=== PATIENT | female | born 1975 | race Caucasian/White ===

== ENCOUNTER 2016-10-18 09:10 | Inpatient (IN) | payer BC ==
[2016-10-18] MEDS ORDERED: RX INFO: IV CONTRAST WAS GIVEN 1 EACH MISC MISCELLANE PRN (09:22)
[2016-10-18] MEDS ORDERED: SODIUM CHLORIDE 0.9% 1,000 ML IV STA (09:22)
--- NOTE | 2016-10-18 09:26 | ED ---
Abdominal Pain HPI <MisbahEmmanuel - Last Filed: 10/18/16 10:56> - General Source: patient, RN notes reviewed Mode of arrival: ambulatory Limitations: no limitations <Fredo Scales - Last Filed: 10/18/16 11:12> - General Chief Complaint: Abdominal Pain Stated Complaint: RT SIDE PAIN Time Seen by Provider: 10/18/16 09:18 - History of Present Illness Initial Comments: 41-year-old female presents emergency Department chief complaint of right-sided abdominal pain. Patient states pain started on Sunday and progressively has gotten worse. Patient states it started in her mid abdomen but now is in her right lower quadrant has not moved from there. She states the bumps erodes any movement makes it feel much worse. She states nothing significant pain feel better other than she took multiple ibuprofen yesterday in which he took the edge off. Patient denies any nausea vomiting diarrhea constipation. Denies dysuria hematuria. Patient denies fever, chills, chest pain or shortness of breath. Patient had no prior abdominal surgeries. (Fredo Scales) - Related Data Home Medications Medication Instructions Recorded Confirmed No Known Home Medications [No 10/18/16 10/18/16 Known Home Medications] Allergies Allergy/AdvReac Type Severity Reaction Status Date / Time Sulfa (Sulfonamide Allergy Rash/Hives Verified 10/18/16 09:27 Antibiotics) Review of Systems ROS Other: All systems not noted in ROS Statement are negative. <MisbahEmmanuel - Last Filed: 10/18/16 10:56> ROS Other: All systems not noted in ROS Statement are negative. <Fredo Scales - Last Filed: 10/18/16 11:12> ROS Statement: Those systems with pertinent positive or pertinent negative responses have been documented in the HPI. Past Medical History Additional Past Medical History / Comment(s): kidney stones History of Any Multi-Drug Resistant Organisms: None Reported Past Surgical History: No Surgical Hx Reported Past Psychological History: No Psychological Hx Reported Smoking Status: Never smoker Past Alcohol Use History: None Reported Past Drug Use History: None Reported <Fredo Scales - Last Filed: 10/18/16 11:12> General Exam Limitations: no limitations General appearance: alert, in no apparent distress Respiratory exam: Present: normal lung sounds bilaterally. Absent: respiratory distress, wheezes, rales, rhonchi, stridor Cardiovascular Exam: Present: normal rhythm, tachycardia, normal heart sounds. Absent: systolic murmur, diastolic murmur, rubs, gallop, clicks GI/Abdominal exam: Present: soft, tenderness (Moderate right lower quadrant tenderness), guarding, normal bowel sounds. Absent: distended, rebound, rigid Back exam: Absent: CVA tenderness (R), CVA tenderness (L) Neurological exam: Present: alert Skin exam: Present: warm, dry, intact, normal color. Absent: rash <Fredo Scales - Last Filed: 10/18/16 11:12> Medical Decision Making - Lab Data Result diagrams: 10/18/16 09:44 10/18/16 09:44 <Emmanuel Crawley - Last Filed: 10/18/16 10:56> - Lab Data Result diagrams: 10/18/16 09:44 10/18/16 09:44 <Fredo Scales - Last Filed: 10/18/16 11:12> - Medical Decision Making CT reviewed. Patient reevaluated by myself, Dr. Crawley. Patient and family updated on results and plan. Case was discussed in detail with Dr. Wright, who will admit for hospital call. IV antibiotics will be started. Patient does meet sepsis criteria with probable appendicitis diagnosed at 10:57 AM. ( Emmanuel Crawley) - Lab Data Lab Results 10/18/16 10/18/16 10/18/16 Range/Units 09:20 09:20 09:44 WBC (3.8-10.6) k/uL RBC (3.80-5.40) m/uL Hgb (11.4-16.0) gm/dL Hct (34.0-46.0) % MCV (80.0-100.0) fL MCH (25.0-35.0) pg MCHC (31.0-37.0) g/dL RDW (11.5-15.5) % Plt Count (150-450) k/uL Neutrophils % % Lymphocytes % % Monocytes % % Eosinophils % % Basophils % % Neutrophils # (1.3-7.7) k/uL Lymphocytes # (1.0-4.8) k/uL Monocytes # (0-1.0) k/uL Eosinophils # (0-0.7) k/uL Basophils # (0-0.2) k/uL Sodium 141 (137-145) mmol/L Potassium 4.1 (3.5-5.1) mmol/L Chloride 106 (98-107) mmol/L Carbon Dioxide 24 (22-30) mmol/L Anion Gap 11 mmol/L BUN 9 (7-17) mg/dL Creatinine 0.93 (0.52-1.04) mg/dL Est GFR (MDRD) Af Amer >60 (>60 ml/min/1.73 sqM) Est GFR (MDRD) Non-Af >60 (>60 ml/min/1.73 sqM) Glucose 117 H (74-99) mg/dL Calcium 9.0 (8.4-10.2) mg/dL Total Bilirubin 1.3 (0.2-1.3) mg/dL AST 21 (14-36) U/L ALT 31 (9-52) U/L Alkaline Phosphatase 85 (38-126) U/L Total Protein 7.7 (6.3-8.2) g/dL Albumin 4.3 (3.5-5.0) g/dL Amylase 54 (30-110) U/L Lipase 64 (23-300) U/L Urine Color Yellow Urine Appearance Cloudy H (Clear) Urine pH 5.5 (5.0-8.0) Ur Specific [place] 1.022 (1.001-1.035) Urine Protein 1+ H (Negative) Urine Glucose (UA) Negative (Negative) Urine Ketones 2+ H (Negative) Urine Blood Moderate H (Negative) Urine Nitrite Negative (Negative) Urine Bilirubin Negative (Negative) Urine Urobilinogen 2.0 (<2.0) mg/dL Ur Leukocyte Esterase Large H (Negative) Urine RBC 12 H (0-5) /hpf Urine WBC 10 H (0-5) /hpf Ur Squamous Epith Cells 12 H (0-4) /hpf Urine Bacteria Rare H (None) /hpf Urine Mucus Rare H (None) /hpf Urine HCG, Qual Not Detected (Not Detectd) 10/18/16 Range/Units 09:44 WBC 17.5 H (3.8-10.6) k/uL RBC 4.71 (3.80-5.40) m/uL Hgb 13.4 (11.4-16.0) gm/dL Hct 40.8 (34.0-46.0) % MCV 86.5 (80.0-100.0) fL MCH 28.3 (25.0-35.0) pg MCHC 32.7 (31.0-37.0) g/dL RDW 12.9 (11.5-15.5) % Plt Count 209 (150-450) k/uL Neutrophils % 85 % Lymphocytes % 8 % Monocytes % 5 % Eosinophils % 0 % Basophils % 0 % Neutrophils # 14.9 H (1.3-7.7) k/uL Lymphocytes # 1.3 (1.0-4.8) k/uL Monocytes # 0.9 (0-1.0) k/uL Eosinophils # 0.1 (0-0.7) k/uL Basophils # 0.0 (0-0.2) k/uL Sodium (137-145) mmol/L Potassium (3.5-5.1) mmol/L Chloride (98-107) mmol/L Carbon Dioxide (22-30) mmol/L Anion Gap mmol/L BUN (7-17) mg/dL Creatinine (0.52-1.04) mg/dL Est GFR (MDRD) Af Amer (>60 ml/min/1.73 sqM) Est GFR (MDRD) Non-Af (>60 ml/min/1.73 sqM) Glucose (74-99) mg/dL Calcium (8.4-10.2) mg/dL Total Bilirubin (0.2-1.3) mg/dL AST (14-36) U/L ALT (9-52) U/L Alkaline Phosphatase (38-126) U/L Total Protein (6.3-8.2) g/dL Albumin (3.5-5.0) g/dL Amylase (30-110) U/L Lipase (23-300) U/L Urine Color Urine Appearance (Clear) Urine pH (5.0-8.0) Ur Specific [place] (1.001-1.035) Urine Protein (Negative) Urine Glucose (UA) (Negative) Urine Ketones (Negative) Urine Blood (Negative) Urine Nitrite (Negative) Urine Bilirubin (Negative) Urine Urobilinogen (<2.0) mg/dL Ur Leukocyte Esterase (Negative) Urine RBC (0-5) /hpf Urine WBC (0-5) /hpf Ur Squamous Epith Cells (0-4) /hpf Urine Bacteria (None) /hpf Urine Mucus (None) /hpf Urine HCG, Qual (Not Detectd) Disposition <Emmanuel Crawley - Last Filed: 10/18/16 10:56> Time of Disposition: 11:12 <Fredo Scales - Last Filed: 10/18/16 11:12> Clinical Impression: Acute appendicitis Disposition: ADMITTED IP TO THIS HOSP Condition: Fair
[2016-10-18 10:05] LABS: Basophils % (A) 0 %; CH 28.7; CHCM 33.3; Eosinophils # (A) 0.1 k/uL (0-0.7); Eosinophils % (A) 0 %; HCT 40.8 % (34.0-46.0); HDW 2.42; HGB 13.4 gm/dL (11.4-16.0); Luc # (Auto) 0.25; Luc % (Auto) 1; Lymphocytes # (A) 1.3 k/uL (1.0-4.8); Lymphocytes % (A) 8 %; MCH 28.3 pg (25.0-35.0); MCHC 32.7 g/dL (31.0-37.0); MCV 86.5 fL (80.0-100.0); Mean Platelet Volume 7.8; Monocytes # (A) 0.9 k/uL (0-1.0); Monocytes % (A) 5 %; Neutrophils # (A) 14.9 k/uL (1.3-7.7); Neutrophils % (A) 85 %; RBC 4.71 m/uL (3.80-5.40); RDW 12.9 % (11.5-15.5); WBC 17.5 k/uL (3.8-10.6)
[2016-10-18 10:10] LABS: Appearance,Urine Cloudy (Clear); Bacteria,Urine Rare /hpf; Bilirubin,Urine Negative (Negative); Glucose,Urine (UA) Negative (Negative); Ketones,Urine 2+ (Negative); Leukocyte Esterase,Urine Large (Negative); Mucus,Urine Rare /hpf; Nitrite,Urine Negative (Negative); PH, Urine 5.5 (5.0-8.0); Particle Count 11651; Protein,Urine 1+ (Negative); RBC,Urine 12 /hpf (0-5); Specific Gravity,Urine 1.022 (1.001-1.035); Squamous Epithelial Cell,Urine 12 /hpf (0-4); UA Billing (MACRO vs. MICRO) MICRO; WBC,Urine 10 /hpf (0-5)
[2016-10-18 10:25] LABS: ALT 31 U/L (9-52); AST 21 U/L (14-36); Alkaline Phosphatase 85 U/L (38-126); Amylase 54 U/L (30-110); Anion Gap 11 mmol/L; Blood Urea Nitrogen 9 mg/dL (7-17); Carbon Dioxide 24 mmol/L (22-30); Chloride 106 mmol/L (98-107); Glucose 117 mg/dL (74-99); Non-African American GFR(MDRD) >60 (>60 ml/min/1.73 sqM); Potassium 4.1 mmol/L (3.5-5.1); Sodium 141 mmol/L (137-145); Total Bilirubin 1.3 mg/dL (0.2-1.3); Total Protein 7.7 g/dL (6.3-8.2)
[2016-10-18] MEDS ORDERED: PIPERACILLIN-TAZOBACTAM 3.375 GM in DEXTROSE/WATER 1 50ML.BAG IVPB STA ×2 (10:46→10:56)
[2016-10-18] MEDS ORDERED: MORPHINE SULFATE 4 MG/ML SYRINGE IVP STA (10:47)
[2016-10-18] MEDS ORDERED: ONDANSETRON 4 MG/2 ML VIAL IVP STA (10:47)
--- NOTE | 2016-10-18 10:47 | CT ---
EXAMINATION TYPE: CT abdomen pelvis w con DATE OF EXAM: 10/18/2016 10:35 AM HISTORY: RLQ pain X 3 days, history of stones. CT DLP: 1393.0mGycm Automated Exposure Control for Dose Reduction was Utilized. CONTRAST: CT scan of the abdomen and pelvis is performed with IV Contrast, patient injected with 100 mL of Omni paque 300. COMPARISON: None. FINDINGS: LUNG BASES: No significant abnormality is appreciated. LIVER/GB: No significant abnormality is appreciated. PANCREAS: No significant abnormality is seen. SPLEEN: No significant abnormality is seen. ADRENALS: No significant abnormality is seen. KIDNEYS: There is single 2 mm calculus lower pole level left kidney on coronal image 50. There are 2 2 mm calculi lower pole level right kidney on axial image 36. There is symmetric cortical medullary u ptake and excretion from both kidneys without evidence of hydronephrosis bilaterally. There is promin ent left-sided pelvic phlebolith on axial image 67. No intraluminal calculus in a poorly distended bl adder is seen. BOWEL: Evaluation bowel is slightly suboptimal secondary to lack of enteric contrast. There is no valeria picious small or large bowel dilatation. There is hyperdense focus at base of cecum on coronal image 27 could reflect appendicolith. Normal-appearing appendix is not distinctly identified. There is mode rate ill-defined fluid and inflammatory change centered at base of cecum. Terminal ileum is seen on c oronal image 28 with mild wall thickening identified. There are few scattered prominent but subcentim eter lymph nodes. Suspect appendicitis with perforation. No well-formed fluid collection or drainable abscess is seen. No pneumoperitoneum is noted. Normal or dilated appearing appendix are not identifi ed. UTERUS/ADNEXA: Uterus is anteverted in shape. Both ovaries are seen and normal in size near axial imer ge 64. LYMPH NODES: No greater than 1cm abdominal or pelvic lymph nodes are appreciated. OSSEOUS STRUCTURES: No significant abnormality is seen. OTHER: No significant additional abnormality is seen. IMPRESSION: CT findings are consistent with acute appendicitis, nonvisualization of normal or abnorma l appendix raises concern for perforation. No free air or well-formed fluid collection/abscess is quan ntified.
[2016-10-18] MEDS ORDERED: NALOXONE 0.4 MG/ML 1 ML VIAL IV PRN (11:13)
[2016-10-18] MEDS ORDERED: SODIUM CHLORIDE 0.9% 1,000 ML IV SCH (11:15)
[2016-10-18] MEDS ORDERED: HEPARIN SODIUM,PORCINE 5,000 UNIT/ML 1 ML VIAL SQ ONE (11:32)
--- NOTE | 2016-10-18 11:32 | P.GSHP ---
History of Present Illness H&P Date: 10/18/16 Chief Complaint: Abdominal pain 41 years old female presented with periumbilical pain that started 2 days ago and has now progressed to right lower quadrant. Pain is severe and she is not able to lie down flat. No fever, chills or redness. Loss of appetite. No nausea or vomiting. No prior surgeries. Computed tomography scan of the abdomen and pelvis reviewed. Information and phlegmon identified in the right lower quadrant in the vicinity of cecum and appendix. This most likely represents perforated appendicitis - Review of Systems Comment: Constitutional: Denies fever, weight loss or loss of appetite HEENT: No difficulty in vision or hearing. Denies dysphagia. Cardiovascular: Denies chest pain, palpitations, dizziness, shortness of breath. Gastrointestinal: No recent change in bowel habits, no abdominal pain, no nausea or vomiting. Genitourinary: No urinary incontinence, hematuria or dysuria Neurologic: No seizures, denies weakness in upper or lower extremities Past Medical History Additional Past Medical History / Comment(s): kidney stones History of Any Multi-Drug Resistant Organisms: None Reported Past Surgical History: No Surgical Hx Reported Past Psychological History: No Psychological Hx Reported Smoking Status: Never smoker Past Alcohol Use History: None Reported Past Drug Use History: None Reported Medications and Allergies Home Medications Medication Instructions Recorded Confirmed Type No Known Home Medications [No 10/18/16 10/18/16 History Known Home Medications] Allergies Allergy/AdvReac Type Severity Reaction Status Date / Time Sulfa (Sulfonamide Allergy Rash/Hives Verified 10/18/16 09:27 Antibiotics) Surgical - Exam Vital Signs Temp Pulse Resp BP Pulse Ox 97.8 F 124 H 18 128/71 99 10/18/16 09:15 10/18/16 09:15 10/18/16 09:15 10/18/16 09:15 10/18/16 09:15 General: Patient is alert and oriented to time, place and person and cooperative with exam. HEENT: No pallor, no icterus, no thyroid enlargement, no cervical lymphadenopathy. Chest: Bilateral equal breath sounds present. No wheezes, no crackles. Cardiovascular: Regular rate and rhythm. Abdomen: Right lower quadrant tenderness with localized peritonitis. Rovsing sign positive Integumentary: . No active ulcers or discharge. Neurologic: Cranial nerves II-XII intact. Strength upper and lower extremities 5/5. No focal neurologic deficits. Gait is normal. Psychiatric: No anxiety or psychosis. No suicidal thoughts. Results - Labs 10/18/16 09:44 10/18/16 09:44 Abnormal Lab Results - Last 24 Hours (Table) 10/18/16 10/18/16 10/18/16 Range/Units 09:20 09:44 09:44 WBC 17.5 H (3.8-10.6) k/uL Neutrophils # 14.9 H (1.3-7.7) k/uL Glucose 117 H (74-99) mg/dL Urine Appearance Cloudy H (Clear) Urine Protein 1+ H (Negative) Urine Ketones 2+ H (Negative) Urine Blood Moderate H (Negative) Ur Leukocyte Esterase Large H (Negative) Urine RBC 12 H (0-5) /hpf Urine WBC 10 H (0-5) /hpf Ur Squamous Epith Cells 12 H (0-4) /hpf Urine Bacteria Rare H (None) /hpf Urine Mucus Rare H (None) /hpf Diabetes panel 10/18/16 Range/Units 09:44 Sodium 141 (137-145) mmol/L Potassium 4.1 (3.5-5.1) mmol/L Chloride 106 (98-107) mmol/L Carbon Dioxide 24 (22-30) mmol/L BUN 9 (7-17) mg/dL Creatinine 0.93 (0.52-1.04) mg/dL Glucose 117 H (74-99) mg/dL Calcium 9.0 (8.4-10.2) mg/dL AST 21 (14-36) U/L ALT 31 (9-52) U/L Alkaline Phosphatase 85 (38-126) U/L Total Protein 7.7 (6.3-8.2) g/dL Albumin 4.3 (3.5-5.0) g/dL Calcium panel 10/18/16 Range/Units 09:44 Calcium 9.0 (8.4-10.2) mg/dL Albumin 4.3 (3.5-5.0) g/dL Pituitary panel 10/18/16 Range/Units 09:44 Sodium 141 (137-145) mmol/L Potassium 4.1 (3.5-5.1) mmol/L Chloride 106 (98-107) mmol/L Carbon Dioxide 24 (22-30) mmol/L BUN 9 (7-17) mg/dL Creatinine 0.93 (0.52-1.04) mg/dL Glucose 117 H (74-99) mg/dL Calcium 9.0 (8.4-10.2) mg/dL Adrenal panel 10/18/16 Range/Units 09:44 Sodium 141 (137-145) mmol/L Potassium 4.1 (3.5-5.1) mmol/L Chloride 106 (98-107) mmol/L Carbon Dioxide 24 (22-30) mmol/L BUN 9 (7-17) mg/dL Creatinine 0.93 (0.52-1.04) mg/dL Glucose 117 H (74-99) mg/dL Calcium 9.0 (8.4-10.2) mg/dL Total Bilirubin 1.3 (0.2-1.3) mg/dL AST 21 (14-36) U/L ALT 31 (9-52) U/L Alkaline Phosphatase 85 (38-126) U/L Total Protein 7.7 (6.3-8.2) g/dL Albumin 4.3 (3.5-5.0) g/dL Assessment and Plan (1) Morbid obesity Status: Acute (2) Morbid obesity due to excess calories Status: Acute (3) Acute appendicitis Status: Acute Plan: 1. Acute appendicitis with localized peritonitis 2. IV hydration. Thousand mL of normal saline IV bolus stat 3. IV antibiotics 4. Heparin 5000 units of diffuse injection times one 5. Bilateral SCDs 6. Findings discussed with the patient. Plan for laparoscopic appendectomy possible open. The risks, benefits and potential complications including bleeding, infection, possibility of converting into open, partial cecum resection and possible ostomy were discussed with the patient. She agreed and elected to undergo the procedure
[2016-10-18] MEDS ORDERED: IV FLUID CONTINUATION 1,000 ML IV ONE (12:39)
[2016-10-18] MEDS ORDERED: MIDAZOLAM 2 MG/2 ML VIAL IV ONE (13:05)
[2016-10-18] MEDS ORDERED: HYDROmorphone (PF) 1 MG/ML ONE (14:02)
[2016-10-18] MEDS ORDERED: MIDAZOLAM 2 MG/2 ML VIAL ONE (14:02)
[2016-10-18] MEDS ORDERED: PROPOFOL 10 MG/ML 20 ML VIAL IV ONE (14:02)
[2016-10-18] MEDS ORDERED: ROCURONIUM BROMIDE 10 MG/ML 10 ML VIAL IV ONE (14:02)
[2016-10-18] MEDS ORDERED: fentaNYL (PF) 50 MCG/ML 2 ML AMP ONE (14:02)
[2016-10-18] MEDS ORDERED: GLYCOPYRROLATE 0.2 MG/ML 2 ML VIAL ONE (14:02)
[2016-10-18] MEDS ORDERED: LIDOCAINE 1% INJ 10MG/ML (20 ML MDV) ONE (14:02)
[2016-10-18] MEDS ORDERED: NEOSTIGMINE 1 MG/ML 10 ML VIAL ONE (14:02)
[2016-10-18] MEDS ORDERED: SUCCINYLCHOLINE CHLORIDE 100 MG/5 ML SYR IV ONE (14:02)
[2016-10-18] MEDS ORDERED: BUPIVACAIN-EPI 0.25%-1:200,000 30 ML VIAL SQ ONE ×2 (14:45)
[2016-10-18] MEDS ORDERED: LACTATED RINGERS 1,000 ML IV ONE ×2 (14:46→15:20)
[2016-10-18] MEDS ORDERED: BENZOCAINE/MENTHOL LOZENG 1 EACH LOZENGE MUCOUS MEM PRN (16:49)
[2016-10-18] MEDS ORDERED: METOCLOPRAMIDE 5 MG/ML 2 ML VIAL IVP PRN (16:49)
--- NOTE | 2016-10-18 16:55 | P.OP ---
Date of Procedure: 10/18/16 Preoperative Diagnosis: Acute appendicitis with peritonitis Obesity BMI 36.2 Postoperative Diagnosis: Acute perforated appendicitis and adjacent cecal perforation Procedure(s) Performed: Attempted laparoscopic appendectomy coverted to open Open ileocecal resection with primary side to side functional end anastomosis Implants: NA Anesthesia: GETA, local Surgeon: Sigrid Wright Pathology: other Condition: stable Disposition: PACU Indications for Procedure: 41 years old female presents with right lower quadrant pain of 2 day duration. She had peritonitis on clinical exam. Leukocytosis 17K at presentation and computed tomography scan suggestive of perforated appendicitis. Informed consent obtained and patient elected to undergo laparoscopic appendectomy possible open and possible partial colon resection. Operative Findings: Perforated appendicitis with abscess and adjacent cecal perforation Description of Procedure: The patient was brought to the operating room and placed in supine position with both arms out. General anesthesia with endotracheal intubation was performed as per anesthesia team. A Kat catheter was inserted under sterile aseptic precautions. Bilateral SCDs were placed and patient was secured to the operating table using a footboard and two secure straps. Chlorhexidine was used to prep the abdomen followed by application of sterile drapes . A timeout was performed to verify correct patient and procedure. Patient was confirmed to receive perioperative IV antibiotics and subcutaneous VTE prophylaxis. A 5 mm skin incision was made along the left anterior axillary line and Veress needle was inserted. Pneumoperitoneum was established to a pressure of 15 mmHg without any difficulty. A 5 mm 30 laparoscope was loaded with 5 mm Optiview trocar and the peritoneal cavity was entered under direct vision using the Optiview technique. Additional 5 mm trocar was placed in suprapubic area and a 10 mm trocar was placed above the umbilicus. An additional 5 mm trocar was placed in left lower quadrant. Patient was placed in reverse Trendelenburg with right side up. The appendix was not identified. There was a phlegmonous mass in the right lower quadrant with wrapped omentum, and distal small bowel and cecum. Dissection was carried around using suction irrigation device the peel of the omentum. The tip of the appendix was identified wrapped behind the cecum. This was continuously mobilized. However it was densely adhered to the cecum. There was some opening noted in this area of the cecum and hence concern for perforation of the colon secondary to intense inflammation from perforated appendicitis. Peritoneal cultures taken. The white line of Toldt was dissected using laparoscopic LigaSure device. Blunt sweeping movements were carried out using fenestrated graspers to reflect the cecum and ascending colon medially. The peritoneal attachments from terminal ileum and cecum to the lateral abdominal wall were taken down using LigaSure. Dissection was carried out close to the cecum and away from the right ureter. The entire right colon was mobilized upto the hepatic flexure. Loose fibrofatty tissue including small blood vessels were taken down using LigaSure device. The cecum was free enough to reach the midline. The appendix was grasped with a laparoscopic Meaghan instrument. An 8 cm skin incision was made in the midline incorporating the trocar site. This was deepened through skin and subcutaneous tissue till the fascia was identified and peritoneal cavity was safely entered. An Luis wound protector device was inserted. The appendix along with the cecum was exteriorized. A window was made in mesentery of the small bowel approximately 3 cm from ileocecal valve. The small bowel was divided using Covidien 60 montano staple load. The ileocolic pedicle divided between two Shantelle clamps and doubly suture ligated. The colon was divided close to the perforation in the cecum after creating a window in the mesocolon. Covidien 60 purple staple loadx2 was fired to transect the large bowel. The mesentery was divided between 2 Shantelle clamps . The right colon was sent off as a specimen. Attention was then focused to create a [id number] functional end anastomosis between small bowel and ascending colon. Covidien 60 purple staple load -2 were fired to create a [id number] anastomosis. The final enterotomy was closed using 60 purple staple load x2. There was no twist or torsion of the large or small bowel. A Peter drain was left in right lower quadrant. The anastomosis was interiorized and fascia closed with continuous running sutures of #1 PDS. A ana drain was left in the subcutaneous tissue. The shawn were applied to approximate the skin. The sponge, instrument, needle count were correct x2 Patient tolerated the procedure well and was taken to post anesthetic care unit in stable condition.
[2016-10-18] MEDS ORDERED: KETOROLAC 30 MG/ML 1 ML VIAL IVP ONE (16:58)
[2016-10-18] MEDS ORDERED: PIPERACILLIN-TAZOBACTAM 3.375 GM in DEXTROSE/WATER 1 50ML.BAG IVPB SCH (17:45)
[2016-10-18] MEDS: ACETAMINOPHEN IV (For NPO) 1,000 MG in EMPTY BAG 1 BAG IVPB SCH ×2 (18:02→23:44)
[2016-10-18] MEDS: PIPERACILLIN-TAZOBACTAM 3.375 GM in DEXTROSE/WATER 1 50ML.BAG IVPB SCH (18:18)
[2016-10-18] MEDS: ALVIMOPAN 12 MG CAPSULE PO SCH (21:49)
[2016-10-18] MEDS: ONDANSETRON 4 MG/2 ML VIAL IVP PRN (21:51)
[2016-10-18] MEDS: HYDROmorphone 1 MG/ML 1 ML SYRINGE IVP PRN (21:51)
[2016-10-18] MEDS: HEPARIN SODIUM,PORCINE 5,000 UNIT/ML 1 ML VIAL SQ SCH ×2 (22:53→23:45)
[2016-10-18] MEDS: LACTATED RINGERS 1,000 ML IV SCH ×2 (23:14→23:58)
[2016-10-19] MEDS: PIPERACILLIN-TAZOBACTAM 3.375 GM in DEXTROSE/WATER 1 50ML.BAG IVPB SCH ×3 (00:31→16:25)
[2016-10-19] MEDS: HYDROmorphone 1 MG/ML 1 ML SYRINGE IVP PRN ×5 (01:35→21:06)
[2016-10-19] MEDS: diphenhydrAMINE 50 MG/ML 1 ML VIAL IVP PRN ×2 (05:16→12:54)
[2016-10-19] MEDS: LACTATED RINGERS 1,000 ML IV SCH ×3 (05:18→22:43)
[2016-10-19] MEDS: ACETAMINOPHEN IV (For NPO) 1,000 MG in EMPTY BAG 1 BAG IVPB SCH ×2 (05:20→12:17)
[2016-10-19 07:15] LABS: Basophils % (A) 0 %; CH 28.4; CHCM 32.2; Eosinophils # (A) 0.1 k/uL (0-0.7); Eosinophils % (A) 1 %; HCT 33.8 % (34.0-46.0); HDW 2.43; HGB 11.4 gm/dL (11.4-16.0); Luc # (Auto) 0.19; Luc % (Auto) 2; Lymphocytes # (A) 0.9 k/uL (1.0-4.8); Lymphocytes % (A) 7 %; MCH 29.9 pg (25.0-35.0); MCHC 33.8 g/dL (31.0-37.0); MCV 88.7 fL (80.0-100.0); Mean Platelet Volume 8.3; Monocytes # (A) 0.4 k/uL (0-1.0); Monocytes % (A) 4 %; Neutrophils # (A) 10.3 k/uL (1.3-7.7); Neutrophils % (A) 87 %; RBC 3.82 m/uL (3.80-5.40); RDW 12.8 % (11.5-15.5); WBC 11.8 k/uL (3.8-10.6); WBC (Perox) 12.75
[2016-10-19 07:28] LABS: Anion Gap 7 mmol/L; Blood Urea Nitrogen 11 mg/dL (7-17); Calcium 8.1 mg/dL (8.4-10.2); Carbon Dioxide 25 mmol/L (22-30); Chloride 107 mmol/L (98-107); Glucose 120 mg/dL (74-99); Non-African American GFR(MDRD) >60 (>60 ml/min/1.73 sqM); Potassium 4.4 mmol/L (3.5-5.1); Sodium 139 mmol/L (137-145)
[2016-10-19] MEDS: ALVIMOPAN 12 MG CAPSULE PO SCH ×2 (09:00→22:05)
[2016-10-19] MEDS: HEPARIN SODIUM,PORCINE 5,000 UNIT/ML 1 ML VIAL SQ SCH ×2 (09:00→16:25)
[2016-10-19 09:24] LABS: Appearance,Urine Turbid (Clear); Bilirubin,Urine 1+ (Negative); Glucose,Urine (UA) Negative (Negative); Ketones,Urine 1+ (Negative); Leukocyte Esterase,Urine Negative (Negative); Nitrite,Urine Negative (Negative); PH, Urine 5.5 (5.0-8.0); Particle Count 13322; Protein,Urine Trace (Negative); RBC,Urine 9 /hpf (0-5); Specific Gravity,Urine 1.035 (1.001-1.035); UA Billing (MACRO vs. MICRO) MICRO
--- NOTE | 2016-10-19 12:14 | P.PN ---
<Luana Medleytory Mary - Last Filed: 10/19/16 13:44> Subjective 41-year-old female being seen this morning currently resting in bed. Patient is postop October 18 Attempted laparoscopic appendectomy coverted to open Open ileocecal resection with primary side to side functional end anastomosis . Currently is resting in bed and states pain medication has been effective for pain control currently is afebrile temp is 96.9. The white count is down to 11.8 on admission was 17.5 Patient's initial presentation to the emergency room with a chief complaint of developing right lower quadrant pain onset 2 days prior. Patient had leukocytosis and a CAT scan of the abdomen and pelvis suggest perforated appendicitis. Patient elected to undergo surgical procedure per Dr. Wright. The operative findings indicate the patient had a perforated appendix with an abscess and adjacent cecal perforation. Objective - Vital Signs Vital signs: Vital Signs Temp 96.9 F L 10/19/16 08:10 Pulse 75 10/19/16 08:10 Resp 20 10/19/16 08:10 BP 113/63 10/19/16 08:10 Pulse Ox 99 10/19/16 08:10 Intake & Output 10/18/16 10/19/16 10/19/16 18:59 06:59 18:59 Intake Total 2700 Output Total 625 350 Balance 2075 -350 Intake: IV 2700 Output: Drainage 50 Right 50 Urine 600 300 Uretheral (Kat) 300 Estimated Blood Loss 25 Other: Voiding Method Indwelling Catheter - Exam Physical exam 41-year-old female pleasant cooperative oriented 3 resting in bed states that the medication effective for pain control Lungs essentially clear with adequate air movement using the incentive spirometer can achieve 1500 sats on room air 99% Heart S1-S2 audible and regular denying chest pain no murmur Abdomen abdominal binder in place a few hypoactive bowel tones indwelling Kat catheter in place. Sancho-Mojcia drain in place on the right side Extremities Venodyne's on to the bilateral lower extremities no edema - Labs CBC & Chem 7: 10/19/16 06:59 10/19/16 06:59 Labs: Abnormal Lab Results - Last 24 Hours (Table) 10/19/16 10/19/16 10/19/16 Range/Units 06:59 06:59 08:55 WBC 11.8 H (3.8-10.6) k/uL Hct 33.8 L (34.0-46.0) % Neutrophils # 10.3 H (1.3-7.7) k/uL Lymphocytes # 0.9 L (1.0-4.8) k/uL Glucose 120 H (74-99) mg/dL Calcium 8.1 L (8.4-10.2) mg/dL Urine Appearance Turbid H (Clear) Urine Protein Trace H (Negative) Urine Ketones 1+ H (Negative) Urine Blood Small H (Negative) Urine Bilirubin 1+ H (Negative) Urine RBC 9 H (0-5) /hpf Urine Yeast (Budding) Many H (None) /hpf Assessment and Plan Plan: Impression Present on admission 2 day duration of right lower quadrant pain suspect due to an acute perforated appendicitis Status post October 18 Attempted laparoscopic appendectomy coverted to open ileocecum resection with primary side to side functional end anastomosis Present on admission right lower quadrant abdominal pain CAT scan of the abdomen pelvis suggested perforated appendicitis Present on admission leukocytosis Plan Remove the indwelling Kat catheter Increase activity to the level of tolerance Increase the use of the incentive spirometer Monitor labs repeat them in the morning pain control IV fluid for hydration Keep nothing by mouth for now Follow up on blood and urine cultures Continue IV antibiotics as ordered Zosyn The above dictated assessment and findings were discussed with dr gonzalez. Impression and the plan of care have been dictated as directed. Soheila Medley nurse practitioner acting as a scribe for dr gonzalez <Sigrid Wright - Last Filed: 10/20/16 10:33> Objective - Vital Signs Vital signs: Vital Signs Temp 98.5 F 10/20/16 08:06 Pulse 94 10/20/16 08:06 Resp 20 10/20/16 08:06 BP 129/75 10/20/16 08:06 Pulse Ox 93 L 10/20/16 08:06 Intake & Output 10/19/16 10/20/16 10/20/16 18:59 06:59 18:59 Output Total 290 110 Balance -290 -110 Output: Drainage 40 110 Right 40 110 Urine 250 Uretheral (Kat) 250 Other: Voiding Method Toilet # Voids 1 - Labs CBC & Chem 7: 10/20/16 06:59 10/20/16 06:59 Labs: Abnormal Lab Results - Last 24 Hours (Table) 10/20/16 10/20/16 Range/Units 06:59 06:59 Hgb 11.0 L (11.4-16.0) gm/dL Hct 32.8 L (34.0-46.0) % Chloride 110 H (98-107) mmol/L Total Protein 6.0 L (6.3-8.2) g/dL Albumin 3.0 L (3.5-5.0) g/dL Microbiology - Last 24 Hours (Table) 10/19/16 08:55 Urine Culture - Preliminary Urine,Catheterized 10/18/16 11:25 Blood Culture - Preliminary Blood No Growth after 24 hours Assessment and Plan (1) Morbid obesity Status: Acute (2) Morbid obesity due to excess calories Status: Acute (3) Acute appendicitis Status: Acute Plan: RAMIRO Kataditi Hernandez Zosyn Ice chips and popsicles Consult ID Ambulate in halllways Incentive spirometry
[2016-10-19] MEDS: ONDANSETRON 4 MG/2 ML VIAL IVP PRN ×2 (13:27→22:04)
[2016-10-20] MEDS: PIPERACILLIN-TAZOBACTAM 3.375 GM in DEXTROSE/WATER 1 50ML.BAG IVPB SCH ×3 (00:18→15:44)
[2016-10-20] MEDS: HYDROmorphone 1 MG/ML 1 ML SYRINGE IVP PRN ×5 (00:28→20:29)
[2016-10-20] MEDS: HEPARIN SODIUM,PORCINE 5,000 UNIT/ML 1 ML VIAL SQ SCH ×3 (00:31→16:37)
[2016-10-20] MEDS: LACTATED RINGERS 1,000 ML IV SCH (06:55)
[2016-10-20 07:34] LABS: Basophils % (A) 0 %; Eosinophils # (A) 0.1 k/uL (0-0.7); Eosinophils % (A) 1 %; HCT 32.8 % (34.0-46.0); HDW 2.52; Luc # (Auto) 0.15; Luc % (Auto) 1; Lymphocytes % (A) 19 %; MCH 28.6 pg (25.0-35.0); MCHC 33.6 g/dL (31.0-37.0); MCV 85.2 fL (80.0-100.0); Mean Platelet Volume 8.9; Monocytes # (A) 0.6 k/uL (0-1.0); Monocytes % (A) 6 %; Neutrophils # (A) 7.6 k/uL (1.3-7.7); Neutrophils % (A) 73 %; RBC 3.85 m/uL (3.80-5.40); RDW 12.6 % (11.5-15.5); WBC 10.4 k/uL (3.8-10.6); WBC (Perox) 9.86
[2016-10-20 08:27] LABS: Anion Gap 8 mmol/L; Calcium 8.5 mg/dL (8.4-10.2); Carbon Dioxide 22 mmol/L (22-30); Chloride 110 mmol/L (98-107); Glucose 80 mg/dL (74-99); Non-African American GFR(MDRD) >60 (>60 ml/min/1.73 sqM); Sodium 140 mmol/L (137-145)
[2016-10-20 08:33] LABS: ALT 26 U/L (9-52); AST 25 U/L (14-36); Alkaline Phosphatase 47 U/L (38-126); Blood Urea Nitrogen 11 mg/dL (7-17); Potassium 4.9 mmol/L (3.5-5.1)
[2016-10-20] MEDS: ONDANSETRON 4 MG/2 ML VIAL IVP PRN (09:26)
[2016-10-20] MEDS: SODIUM CHLORIDE 0.9% 1,000 ML IV SCH ×3 (09:26→20:28)
[2016-10-20] MEDS: ALVIMOPAN 12 MG CAPSULE PO SCH ×2 (09:26→20:29)
--- NOTE | 2016-10-20 09:50 | CONS ---
DATE OF CONSULTATION: 10/19/2016 REASON FOR CONSULTATION: Perforated appendicitis. HISTORY OF PRESENT ILLNESS: The patient is a 41-year-old female who presented to the [facility] ER on 10/18/2016, which she complains of abdominal pain. Her pain started on Sunday and has progressively got worse, mostly in the right lower abdominal area. Pain described to be dull, aching pain, almost 6 to 7 out of 10 and no radiation. Patient did take some ibuprofen with some relief of pain but no resolution. No nausea, vomiting or diarrhea. No high-grade fever, chills. Subsequently, patient was brought into the ER. The patient has been evaluated by the ER physician. CT abdominal pain is suspicious for possible perforated appendicitis. The patient was taken to the OR by Dr. Wright. She was noticed to have acute ruptured appendicitis and adjacent cecal perforation, and is status post open ileocecal resection with primary zblr-en-ated functional anastomosis. The patient has been admitted to the hospital and started on Zosyn. ID was consulted today for further recommendation regarding antibiotic therapy. REVIEW OF SYSTEMS: CONSTITUTIONAL: Positive for weakness and some chills. EYES: No complaint. ENT: No complaint. RESPIRATORY: No complaint. CARDIOVASCULAR: No complaint. GENITOURINARY: No complaint. GASTROINTESTINAL: As per HPI. MUSCULOSKELETAL: No complaint. INTEGUMENTARY: No complaint. ENDOCRINE: No complaint. NEUROLOGICAL: No complaint. PAST MEDICAL HISTORY: Kidney stone. PAST SURGICAL HISTORY: No major surgery. SOCIAL HISTORY: No history of smoking, drinking or drug use. FAMILY HISTORY: No pertinent findings noted. ALLERGIES TO SULFA. MEDICATIONS: Currently include the patient is on Cepacol lozenges, Benadryl, heparin, Dilaudid, Reglan, Narcan, Zofran, pip-tazobactam. On examination, blood pressure is 118/60 with a pulse of 94, temperature 98.4. She is 97% on room air. General description is a middle-age female lying in bed in no distress. HEENT EXAMINATION: No pallor or scleral icterus. Oral mucous membrane dry. NECK: Trachea central. No thyromegaly. LUNGS: Unlabored breathing. Clear to auscultation anteriorly. HEART: S1, S2. Regular rate and rhythm. ABDOMEN: Soft, mild tenderness in the lower quadrant area. No guarding. No rigidity. ( ) secretion. EXTREMITIES: No edema of the feet. SKIN: No rash or mass palpable. NEUROLOGICAL: Patient is awake, alert, oriented x3. Mood and affect normal. LABS: Hemoglobin 11.4, white count 11.8 with a BUN of 11, creatinine 0.88. Blood culture obtained, currently pending. DIAGNOSTIC IMPRESSION AND PLAN: Patient with secondary peritonitis from ruptured appendicitis as well as cecal perforation status post laparotomy with appendectomy and ileocecal resection along with side to side anastomosis. The likely organism to cover with gram-negative letty, both aerobes and anaerobes and patient has not been on antibiotic in the recent past, more likely a sensitive pathogen. PLAN: 1. Zosyn 3.375 grams IV piggyback q.8h added to cover for both aerobes and anaerobes. 2. IV fluids. 3. Will follow up on the clinical condition and cultures to further adjust the medication if needed. Thank you for this consultation. Will follow this patient along with you.
--- NOTE | 2016-10-20 10:07 | P.PN ---
<Soheila Medley M - Last Filed: 10/20/16 09:52> Subjective 41-year-old female being seen on rounds with the surgical attending this morning resting in bed no new postop events. Patient states passing no gas no stool. Urinating with no difficulty Patient states pain medication has been effective for pain control. Patient states that she has been up ambulating in the dee yesterday 1. Patient is postop 18 of October Attempted laparoscopic appendectomy coverted to open ileocecal resection with primary rvkn-wn-ryab functional end anastomosis Objective - Vital Signs Vital signs: Vital Signs Temp 98.5 F 10/20/16 08:06 Pulse 94 10/20/16 08:06 Resp 20 10/20/16 08:06 BP 129/75 10/20/16 08:06 Pulse Ox 93 L 10/20/16 08:06 Intake & Output 10/19/16 10/20/16 10/20/16 18:59 06:59 18:59 Output Total 290 110 Balance -290 -110 Output: Drainage 40 110 Right 40 110 Urine 250 Uretheral (Kat) 250 Other: Voiding Method Toilet # Voids 1 - Exam Physical exam 41-year-old female pleasant cooperative oriented 3 resting in bed states medication effective for pain control Lungs essentially clear with adequate air movement using the incentive spirometer can achieve 1500 sats on room air 99% Heart S1-S2 audible and regular denying chest pain no murmur Abdomen abdominal binder in place a few hypoactive bowel tones dressing dry at surgical site Sancho-Mojica drain in place on the right side Extremities Venodyne's on to the bilateral lower extremities no edema - Labs CBC & Chem 7: 10/20/16 06:59 10/20/16 06:59 Labs: Abnormal Lab Results - Last 24 Hours (Table) 10/20/16 10/20/16 Range/Units 06:59 06:59 Hgb 11.0 L (11.4-16.0) gm/dL Hct 32.8 L (34.0-46.0) % Chloride 110 H (98-107) mmol/L Total Protein 6.0 L (6.3-8.2) g/dL Albumin 3.0 L (3.5-5.0) g/dL Microbiology - Last 24 Hours (Table) 10/19/16 08:55 Urine Culture - Preliminary Urine,Catheterized 10/18/16 11:25 Blood Culture - Preliminary Blood No Growth after 24 hours Assessment and Plan Plan: Impression Present on admission 2 day duration of right lower quadrant pain suspect due to an acute perforated appendicitis Status post October 18 Attempted laparoscopic appendectomy coverted to open ileocecum resection with primary side to side functional end anastomosis Present on admission right lower quadrant abdominal pain CAT scan of the abdomen pelvis suggested perforated appendicitis Present on admission leukocytosis hypotensive suspect early sepsis likely due to peritonitis from a ruptured appendix as well as a cecal perforation Secondary peritonitis from a ruptured appendicitis as well as a cecal perforation Plan Remove the indwelling Kat catheter Increase activity to the level of tolerance Increase the use of the incentive spirometer Monitor labs repeat them in the morning pain control IV fluid for hydration Keep nothing by mouth for now Follow up on blood and urine cultures Continue IV antibiotics as ordered Radha The above dictated assessment and findings were discussed with dr gonzalez. Impression and the plan of care have been dictated as directed. Soheila Medley nurse practitioner acting as a scribe for dr gonzalez <Sigrid Wright - Last Filed: 10/20/16 10:35> Objective - Vital Signs Vital signs: Vital Signs Temp 98.5 F 10/20/16 08:06 Pulse 94 10/20/16 08:06 Resp 20 10/20/16 08:06 BP 129/75 10/20/16 08:06 Pulse Ox 93 L 10/20/16 08:06 Intake & Output 10/19/16 10/20/16 10/20/16 18:59 06:59 18:59 Output Total 290 110 Balance -290 -110 Output: Drainage 40 110 Right 40 110 Urine 250 Uretheral (Kat) 250 Other: Voiding Method Toilet # Voids 1 - Labs CBC & Chem 7: 10/20/16 06:59 10/20/16 06:59 Labs: Abnormal Lab Results - Last 24 Hours (Table) 10/20/16 10/20/16 Range/Units 06:59 06:59 Hgb 11.0 L (11.4-16.0) gm/dL Hct 32.8 L (34.0-46.0) % Chloride 110 H (98-107) mmol/L Total Protein 6.0 L (6.3-8.2) g/dL Albumin 3.0 L (3.5-5.0) g/dL Microbiology - Last 24 Hours (Table) 10/19/16 08:55 Urine Culture - Preliminary Urine,Catheterized 10/18/16 11:25 Blood Culture - Preliminary Blood No Growth after 24 hours Assessment and Plan (1) Morbid obesity Status: Acute (2) Morbid obesity due to excess calories Status: Acute (3) Acute appendicitis Status: Acute Plan: Patient examined. Leucocytosis resolving. Awaiting bowel function. Duloclax suppository. Discharge planning once bowel function resumes. Rx scripts in chart. Antibiotics as per infectious disease.
[2016-10-20] MEDS ORDERED: SCOPOLAMINE 1.5MG/72HR PATCH TRANSDERM SCH (12:00)
[2016-10-20] MEDS: BISACODYL 10 MG SUPP RECTAL SCH (14:07)
[2016-10-20] MEDS ORDERED: BISACODYL 10 MG SUPP RECTAL SCH (21:00)
[2016-10-21] MEDS: PIPERACILLIN-TAZOBACTAM 3.375 GM in DEXTROSE/WATER 1 50ML.BAG IVPB SCH ×3 (00:42→15:43)
[2016-10-21] MEDS: HYDROmorphone 1 MG/ML 1 ML SYRINGE IVP PRN ×2 (00:42→04:17)
[2016-10-21] MEDS: HEPARIN SODIUM,PORCINE 5,000 UNIT/ML 1 ML VIAL SQ SCH ×3 (00:42→17:15)
[2016-10-21 05:12] VITALS: RESP 20
[2016-10-21] MEDS: ALVIMOPAN 12 MG CAPSULE PO SCH ×2 (07:53→20:43)
[2016-10-21] MEDS: BISACODYL 10 MG SUPP RECTAL SCH (09:32)
--- NOTE | 2016-10-21 10:23 | PN ---
DATE OF SERVICE: 10/20/2016 Reason for followup is secondary peritonitis from ruptured appendicitis. INTERVAL HISTORY: The patient is afebrile. She is currently feeling better, breathing comfortably. Denies significant chest pain. Her abdominal pain is currently controlled. No nausea or vomiting. On examination, blood pressure 129/81 with a pulse of 86, temperature 98.4, she is 97% on room air. General description is a middle-age female, lying in bed in no distress. RESPIRATORY SYSTEM: Unlabored breathing, clear to auscultation anteriorly. HEART: S1, S2, regular rate and rhythm. ABDOMEN: Soft, no tenderness. LABS: Hemoglobin is 11, white count 10.4, BUN of 11, creatinine 0.92. Blood culture has been negative. DIAGNOSTIC IMPRESSION AND PLAN: Patient with secondary peritonitis from ruptured appendicitis, status post appendectomy. Patient at this time will continue on Zosyn as the patient continues to improve. Plan to finish therapy with Augmentin 875 b.i.d. for about 8 to 10 days with close outpatient followup.
--- NOTE | 2016-10-21 10:32 | P.PN ---
Subjective Patient is 41-year-old female postop surgery October 18 for a ruptured appendix she underwent an ileocecal resection with a primary wamn-ka-onbl functional end- to-end anastomosis. At this time the patient is doing well. She is having bowel activity. Objective - Vital Signs Vital signs: Vital Signs Temp 97.5 F L 10/21/16 08:03 Pulse 89 10/21/16 08:03 Resp 20 10/21/16 08:03 BP 127/71 10/21/16 08:03 Pulse Ox 95 10/21/16 04:00 Intake & Output 10/20/16 10/21/16 10/21/16 18:59 06:59 18:59 Intake Total 60 Output Total 90 40 Balance -30 -40 Weight 89.811 kg Intake: Oral 60 Output: Drainage 90 40 Right 90 40 Other: Voiding Method Toilet Toilet # Voids 3 - Constitutional General appearance: Present: obese - Respiratory Respiratory: bilateral: CTA - Cardiovascular Rhythm: regular Heart sounds: normal: S1, S2 - Gastrointestinal Gastrointestinal Comment(s): Incisions clean and dry BERTIN drain in place General gastrointestinal: Present: decreased bowel sounds - Psychiatric Psychiatric: Present: A&O x's 3, appropriate affect, intact judgment & insight - Labs CBC & Chem 7: 10/20/16 06:59 10/20/16 06:59 Labs: Microbiology - Last 24 Hours (Table) 10/18/16 11:25 Blood Culture - Preliminary Blood No Growth after 48 hours 10/19/16 08:55 Urine Culture - Final Urine,Catheterized Assessment and Plan Plan: Impression/plan: 1. 41-year-old white female status post ileocecostomy for ruptured appendix 2. advance diet 3. Probable discharge home tomorrow
[2016-10-21] MEDS: HYDROcodone/APAP 5-325MG 1 EACH TAB PO PRN ×3 (11:08→21:37)
[2016-10-22] MEDS: HEPARIN SODIUM,PORCINE 5,000 UNIT/ML 1 ML VIAL SQ SCH ×2 (00:18→07:40)
[2016-10-22] MEDS: PIPERACILLIN-TAZOBACTAM 3.375 GM in DEXTROSE/WATER 1 50ML.BAG IVPB SCH ×2 (00:19→07:40)
[2016-10-22] MEDS: HYDROcodone/APAP 5-325MG 1 EACH TAB PO PRN (06:31)
--- NOTE | 2016-10-22 07:36 | P.PN ---
Subjective Patient is 41-year-old female postop surgery October 18 for a ruptured appendix she underwent an ileocecal resection with a primary usfj-nu-lrbe functional end- to-end anastomosis. At this time the patient is doing well. She is having bowel activity. Patient is tolerating diet without difficulty. Objective - Vital Signs Vital signs: Vital Signs Temp 98.2 F 10/21/16 20:00 Pulse 86 10/21/16 20:00 Resp 20 10/22/16 00:00 BP 119/72 10/21/16 20:00 Pulse Ox 96 10/21/16 20:00 Intake & Output 10/21/16 10/22/16 10/22/16 18:59 06:59 18:59 Intake Total 60 Output Total 70 30 Balance -10 -30 Intake: Oral 60 Output: Drainage 70 30 Right 70 30 Other: Voiding Method Toilet Toilet # Voids 2 - Constitutional General appearance: Present: obese - Respiratory Details: Decreased breath sounds at bases - Cardiovascular Rhythm: regular Heart sounds: normal: S1, S2 - Gastrointestinal Gastrointestinal Comment(s): Incisions clean and dry BERTIN drain in place serosanguineous drainage 30 mL General gastrointestinal: Present: normal bowel sounds - Psychiatric Psychiatric: Present: A&O x's 3, appropriate affect, intact judgment & insight - Labs CBC & Chem 7: 10/20/16 06:59 10/20/16 06:59 Labs: Microbiology - Last 24 Hours (Table) 10/18/16 11:25 Blood Culture - Preliminary Blood No Growth after 72 hours Assessment and Plan Plan: Impression/plan: 1. 41-year-old white female status post ileocecostomy for ruptured appendix 2. Tolerating diet 3. discharge home/antibiotics as per infectious disease
--- NOTE | 2016-10-22 07:37 | P.DS ---
Providers Date of admission: 10/18/16 11:14 Attending physician: Sigrid Wright Consults: 10/19/16 19:42 Consult Physician Routine Consulting Provider: Andre Casas Consult Reason/Comments: appendectomy with bowel perf Do you want consulting provider notified?: Already Contacted Primary care physician: Adwoa Andres Patient Condition at Discharge: Fair Plan - Discharge Summary New Discharge Prescriptions: Amoxic-Pot Clav 875-125Mg [Augmentin 875-125] 1 tab PO Q12HR #20 tablet Docusate [Colace] 100 mg PO BID #30 capsule Hydrocodone/Acetaminophen [[place] 5-325] 1 each PO Q6HR PRN #30 tab PRN Reason: Pain Discharge Medication List Docusate [Colace] 100 mg PO BID #30 capsule 10/19/16 [Rx] Hydrocodone/Acetaminophen [[place] 5-325] 1 each PO Q6HR PRN #30 tab 10/19/16 [Rx] Amoxic-Pot Clav 875-125Mg [Augmentin 875-125] 1 tab PO Q12HR #20 tablet [Rx] Follow up Appointment(s)/Referral(s): Adwoa Andres MD [Primary Care Provider] - 1-2 days Sigrid Wright MD [STAFF PHYSICIAN] - 10/23/16 Andre Casas MD [STAFF PHYSICIAN] - 1 Week Activity/Diet/Wound Care/Special Instructions: OK to shower . No soaking bath. No heavy lifting more than 10 lbs for 6 weeks post surgery. No driving while taking narcotics for pain. May use ice packs for local pain relief Take Motrin 600 mg po TID after meals if pain is not controlled Use incentive spireometry 10 times an hour while awake Discharge Disposition: HOME SELF-CARE
[2016-10-22] MEDS: ALVIMOPAN 12 MG CAPSULE PO SCH (07:40)
[2016-10-22] MEDS: BISACODYL 10 MG SUPP RECTAL SCH (07:41)
[2016-10-22 09:50] VITALS: BP 125/74; PULSE 96; TEMP 97.4
== END 2016-10-22 12:00 | disposition home or self-care (01) | DRG 331 ==
LOC: EC 09:10 → 6PED 11:14
PROVIDERS: ADMIT Surgery; ATTEND Surgery
PROC: 0DTJ0ZZ Resection of Appendix, Open Approach (ICD-10-PCS; 2016-10-18)
PROC: 0DJD4ZZ Inspection of Lower Intestinal Tract, Percutaneous Endoscopic Approach (ICD-10-PCS; 2016-10-18)
PROC: 0DTH0ZZ Resection of Cecum, Open Approach (ICD-10-PCS; principal; 2016-10-18 12:40)
DX: K35.3 Acute appendicitis with localized peritonitis (principal); E66.01 Morbid (severe) obesity due to excess calories; Z87.442 Personal history of urinary calculi; Z68.36 Body mass index [BMI] 36.0-36.9, adult
CPT/HCPCS: 36415; 74177; 80048; 80053; 81001; 81025; 82150; 83605; 83690; 85025; 87040; 87086; 88108; 88305; 88307; 96361; 96365; 96375; 99285

== ENCOUNTER → 2016-12-13 | Outpatient (CLI) | payer BC ==
--- NOTE | 2016-12-13 10:51 | MM ---
Reason for exam: additional evaluation requested from prior study. Last mammogram was performed 1 year and 5 months ago. Physical Findings: Nurse did not find any significant physical abnormalities on exam. MG 3D Diag Mammo W/Cad YELITZA Bilateral CC and MLO view(s) were taken. Prior study comparison: August 19, 2015, right breast US breast workup limited RT. July 28, 2015, bilateral MG 3d screening mammo w/cad. May 06, 2008, left breast ultrasound. There are scattered fibroglandular densities. Finding: There are typically benign round calcifications in the right breast. There is a chronic nodularity in the right breast. These results were verbally communicated with the patient and result sheet given to the patient on 12/13/16. ASSESSMENT: Benign, BI-RAD 2 RECOMMENDATION: Routine screening mammogram of both breasts in 1 year.
== END | disposition home or self-care (01) ==
LOC: RADMAMWWP 09:31
PROVIDERS: ATTEND Obstetrics & Gynecology
DX: R92.8 Other abnormal and inconclusive findings on diagnostic imaging of breast (principal)
CPT/HCPCS: G0204; G0279

== ENCOUNTER 2017-02-09 06:49 | Day surgery (SDC) | payer BC ==
[2017-02-06 15:43] VITALS: BMI 36.6
[~2017-02-09 06:49] MED LIST: LACTATED RINGERS 1,000 ML IV SCH
[2017-02-09 07:15] VITALS: RESP 20; TEMP 97.7
[2017-02-09] MEDS ORDERED: PROPOFOL 10 MG/ML 20 ML VIAL IV ONE (07:34)
--- NOTE | 2017-02-09 07:41 | P.GSHP ---
History of Present Illness H&P Date: 02/09/17 Chief Complaint: Cecal peforation 41 yrs olf female presented with acute RLQ pain. Cecal perforation found intraop and converted into ileocectomy. Now presents for colonoscopy. LLQ pain has resolved Past Medical History Past Medical History: Eye Disorder Additional Past Medical History / Comment(s): hx kidney stones, gestational diabetes, keratoconus bilateral eyes. History of Any Multi-Drug Resistant Organisms: None Reported Past Surgical History: Appendectomy Additional Past Surgical History / Comment(s): [place] teeth extraction. Past Anesthesia/Blood Transfusion Reactions: No Reported Reaction Smoking Status: Never smoker - Past Family History Father Family Medical History: Cancer Additional Family Medical History / Comment(s): Father had heart problems, lung disease, rectal cancer, required multiple transfusions Mother Family Medical History: No Reported History Medications and Allergies Home Medications Medication Instructions Recorded Confirmed Type No Known Home Medications [No 02/06/17 02/09/17 History Known Home Medications] Allergies Allergy/AdvReac Type Severity Reaction Status Date / Time Sulfa (Sulfonamide Allergy Rash/Hives Verified 02/06/17 15:37 Antibiotics) Surgical - Exam Vital Signs Temp Pulse Resp BP Pulse Ox 97.7 F 95 20 120/78 99 02/09/17 07:12 02/09/17 07:12 02/09/17 07:12 02/09/17 07:12 02/09/17 07:12 Assessment and Plan (1) Cecum perforation Status: Acute (2) Morbid obesity due to excess calories Status: Acute Plan: 1. COlonoscopy with possible bx 2. Risks, benefits and potential complications discussed
--- NOTE | 2017-02-09 07:57 | P.OP ---
Date of Procedure: 02/09/17 Preoperative Diagnosis: Cecal perforation S/P ileocectomy Postoperative Diagnosis: Same Procedure(s) Performed: Colonoscopy with bx Implants: Anesthesia: MAC Surgeon: Sigrid Wright Pathology: other Condition: stable Disposition: PACU Indications for Procedure: 42 yrs old female had acute appendicitis and perforated adjacent cecum and underwent ileocectomy. Now presents for colonoscopy Operative Findings: Single 5mm rectal polyp Patent anastomosis Description of Procedure: The patient was brought to the endoscopy suite and placed in lateral decubitus position. IV sedation was given as per anesthesia team. Patient was on continuous vitals and pulse oximetry monitoring throughout the procedure. A timeout was performed to verify correct patient and correct procedure. Perianal examination did not show any external hemorrhoids. Digital rectal examination was performed. No masses or gross blood. A well-lubricated Olympus colonoscope was passed per rectally and was gradually advanced beyond the sigmoid colon, splenic flexure, transverse colon, hepatic flexure. The ileocolonic anastomosis was widely patent. The colonoscope was gradually withdrawn inspecting all the mucosal surfaces. Bowel prep was good. No polyps, masses, AV malformations noted. No diverticulosis seen. A 5 mm polyp in the rectum was identified which was removed using cold biopsy forceps. The scope was gradually withdrawn and retroflexed in the rectum . Grade 1 internal hemorrhoids seen. Total withdrawal time was greater than 6 minutes . Patient tolerated the procedure well and was taken to post anesthesia care unit in stable condition. Recommend repeat colonoscopy in 10 years . Final Pathologic Diagnosis RECTUM, BIOPSY: HYPERPLASTIC POLYP.
[2017-02-09 08:39] VITALS: BP 90/58; PULSE 72
== END 2017-02-09 08:57 | disposition home or self-care (01) ==
LOC: ORWHC2ENDO 06:49
PROVIDERS: ATTEND Surgery
DX: K62.1 Rectal polyp (principal); Z98.0 Intestinal bypass and anastomosis status; H18.603 Keratoconus, unspecified, bilateral; K64.0 First degree hemorrhoids; E66.01 Morbid (severe) obesity due to excess calories; Z68.36 Body mass index [BMI] 36.0-36.9, adult; Z88.2 Allergy status to sulfonamides
CPT/HCPCS: 81025; 88305; 45380; J2704

== ENCOUNTER → 2017-09-24 | Outpatient (CLI) | payer BC ==
--- NOTE | 2017-09-24 14:21 | MR ---
EXAMINATION TYPE: MR brain and iac wo/w con DATE OF EXAM: 09/24/2017 COMPARISON: NONE HISTORY: Acoustic nerve disorder / Tinnitus TECHNIQUE: Multiplanar, multisequence images of the brain and brainstem is performed without and with IV contras t, utilizing 9 mL intravenous Gadavist . FINDINGS: Diffusion weighted images demonstrate no evidence of a recent infarct or other diffusion ab normality. There is no extra-axial fluid collection or significant white matter signal abnormality 2 punctate foci of hyperintensity present within the deep white matter on inversion recovery and T2-we ighted sequences in the left frontal white matter, extreme capsule on the left. The ventricular syst em and cisternal spaces are normal in size and appearance. The brain volume is age appropriate. Midline structures demonstrate normal morphology. The craniocervical junction appears within normal limits. Post contrast images demonstrate no abnormal enhancement. The dural venous sinuses appear pa tent. The visualized sinuses are clear and the globes are intact. IMPRESSION: Cerebellopontine angles are normal, no internal auditory canal mass. Nonspecific foci of white matter demyelination of questionable clinical significance, follow-up as indicated.
== END | disposition home or self-care (01) ==
LOC: RADMRIMAIN 11:24
PROVIDERS: ATTEND Nurse Practitioner Family
DX: H93.19 Tinnitus, unspecified ear (principal); H91.90 Unspecified hearing loss, unspecified ear; H93.3X9 Disorders of unspecified acoustic nerve; G52.9 Cranial nerve disorder, unspecified
CPT/HCPCS: 70553; A9581

== ENCOUNTER → 2017-10-08 | Outpatient (CLI) | payer BC ==
[2017-10-08 09:59] LABS: Basophils % (A) 0 %; Eosinophils # (A) 0.5 k/uL (0-0.7); Eosinophils % (A) 6 %; HCT 33.1 % (34.0-46.0); HGB 10.2 gm/dL (11.4-16.0); Hypochromasia Marked; Lymphocytes # (A) 1.9 k/uL (1.0-4.8); Lymphocytes % (A) 22 %; MCH 23.2 pg (25.0-35.0); MCHC 30.8 g/dL (31.0-37.0); MCV 75.3 fL (80.0-100.0); Mean Platelet Volume 8.8; Microcytosis Slight; Monocytes # (A) 0.4 k/uL (0-1.0); Monocytes % (A) 5 %; Neutrophils # (A) 5.6 k/uL (1.3-7.7); Neutrophils % (A) 65 %; Platelet Count 274 k/uL (150-450); RDW 13.5 % (11.5-15.5); WBC 8.7 k/uL (3.8-10.6)
== END | disposition home or self-care (01) ==
LOC: LABPAT 09:38
PROVIDERS: ATTEND Obstetrics & Gynecology
DX: Z01.812 Encounter for preprocedural laboratory examination (principal); N92.0 Excessive and frequent menstruation with regular cycle; N93.8 Other specified abnormal uterine and vaginal bleeding
CPT/HCPCS: 36415; 85025

== ENCOUNTER → 2017-10-09 | Day surgery (SDC) | payer BC ==
--- NOTE | 2017-10-02 15:14 | HP ---
HISTORY AND PHYSICAL REASON FOR ADMISSION: Dictation is done on October 02 for surgery on October 09, 2017. HISTORY OF PRESENT ILLNESS: The patient is a 42-year-old 3, para 2-0-1-2, who presented to the office complaining of significant and life disrupting periods. They are both irregular in nature and lasting for as long as 12-14 days of the time with clotting. Her partner does have a vasectomy in place. She has been given multiple different options for treatment and has requested to go forward with endometrial ablation. Endometrial biopsy performed in the office was benign. PAST MEDICAL HISTORY: Significant only for a history of a fibroid uterus which should not interfere with this procedure. SURGICAL HISTORY: She has had an appendectomy with no anesthetic complications. OBSTETRICAL HISTORY: 3, para 2-0-1-2 with 2 term vaginal deliveries without complications and 1 miscarriage not requiring D and C. Method of contraception is vasectomy. Gynecologic history is unremarkable except as noted in history of present illness with increasingly irregular and heavy menses. There is no history of any infections to include STDs. FAMILY HISTORY: Noncontributory. SOCIAL HISTORY: The patient is and works as a pediatric speech language pathologist. She is a nonsmoker and denies any significant alcohol or any other social concerns. CURRENT MEDICATIONS: None. ALLERGIES: THERE IS AN ALLERGY, SULFA CAUSES HIVES. REVIEW OF SYSTEMS: Is confined to history of present illness. PHYSICAL EXAMINATION: VITAL SIGNS: Stable. The patient is afebrile. In general, this is a well-developed, moderately obese white female in no acute distress. Her heart has a regular rhythm and rate without murmur. Her lungs are clear to auscultation bilaterally in all scott. Her abdomen is nondistended, has normoactive bowel sounds, soft, nontender, and without any palpable masses, hepatosplenomegaly, or hernias. Her extremities without any cyanosis, clubbing, or edema and are nontender to palpation bilaterally. Bimanual pelvic examination demonstrates normal external genitalia and BUS with normal vaginal mucosa and cervix. The uterus is approximately 6 weeks in size, mid plane, mobile, nontender, normal in shape. The adnexa are normal, nontender without mass bilaterally. ASSESSMENT AND PLAN: Dysfunctional uterine bleeding with menorrhagia: We discussed multiple different options for treatment including hormonal manipulation versus symptomatic relief versus endometrial ablation. She has requested definitive therapy with endometrial ablation and biopsy is negative. The risks and complications of the procedure have been thoroughly discussed including the risk for bleeding, bleeding requiring transfusion, infection, and injury to local structures to specifically include uterine perforation, Asherman syndrome, and subsequent hematometra. She also understands that the history of fibroids may make the results slightly less effective than otherwise. She has understood all these concerns and agreed to proceed. At this time, we are scheduled for the procedure, diagnostic hysteroscopy with NovaSure endometrial ablation on the morning of October 09, 2017. Dictation done on October 02 for surgery on October 09. MMODL / IJN: [id number] /
[2017-10-04 10:12] VITALS: BMI 36.0
[~2017-10-09] MED LIST changes: +Acetaminophen-Codeine 300-30mg TAB PO PRN; +DEXAMETHASONE SOD PHOSPHATE 10 MG/ML 1 ML VIAL IV ONE; +IBUPROFEN 600 MG TAB PO PRN; +KETOROLAC 30 MG/ML 1 ML VIAL IVP PRN; +KETOROLAC 30 MG/ML 1 ML VIAL ONE; +LIDOCAINE 1% 20 ML VIAL (10MG/ML) FOR IV START INTRADERMA ONE; +METOCLOPRAMIDE 5 MG/ML 2 ML VIAL IVP PRN; +MIDAZOLAM 2 MG/2 ML VIAL IV PRN; +MIDAZOLAM 2 MG/2 ML VIAL ONE; +MORPHINE SULFATE 4MG/4ML SYRG IV PRN; +ONDANSETRON 4 MG/2 ML VIAL IVP ONE; +ONDANSETRON 4 MG/2 ML VIAL IVP PRN; +PROPOFOL 10 MG/ML 20 ML VIAL IV ONE; +SIMETHICONE 80 MG CHEWABLE PO PRN; +ceFAZolin IN SWFI 2 GM/20 ML SYRINGE IVP ONE; +diphenhydrAMINE 50 MG/ML 1 ML VIAL IVP PRN; +fentaNYL (PF) 50 MCG/ML 2 ML AMP ONE
--- NOTE | 2017-10-09 11:38 | P.OP ---
Date of Procedure: 10/09/17 Preoperative Diagnosis: #1. Menorrhagia #2. Dysfunctional uterine bleeding Postoperative Diagnosis: Same Procedure(s) Performed: #1. Diagnostic hysteroscopy #2. NovaSure endometrial ablation Anesthesia: other (Gen. by facemask) Surgeon: Alberto Armstrong Estimated Blood Loss (ml): 5 IV fluids (ml): 400 Urine output (ml): 75 Pathology: none sent Condition: stable Disposition: PACU Operative Findings: Preoperative pelvic examination demonstrated a roughly 5 week midplane mobile normal shaped uterus with normal adnexa bilaterally. Intraoperatively, the cervix was 4 cm in length while the uterus sounded to 9 cm. The preprocedural hysteroscopy was inadvertently omitted. The settings for the NovaSure tool where a length of 5.0 cm, a width of 4.3 cm, and a total power 118 W. After a total run time of 106 seconds, the base unit read "procedure complete." The postprocedural hysteroscopic result appeared excellent. The patient is a candidate for vaginal hysterectomy though it may be somewhat difficult as her degree of descensus is marginal. Description of Procedure: The patient was prepped and draped in usual fashion after general anesthesia was administered by the anesthesiologist. A weighted speculum was placed and the bladder drained of approximately 75 mL of clear alvino urine. The anterior lip of the cervix was grasped with a single-tooth tenaculum and the uterus and cervix sounded to 9 and 5 cm respectively as noted above. Serial dilation was carried out to a #19 Hanks dilator to admit the NovaSure tool. Preprocedural hysteroscopy was inadvertently omitted. The NovaSure tool was placed into the in vitro cavity and seated well. The settings are as noted above with a length of 5.0 cm, a width of 4.3 cm, and a total power 118 W. The cavity check was attempted and passed without difficulty. The tool was enabled and the run was started. After total run time of 106 seconds, the base unit read "procedure complete." The tool was closed, removed, and discarded. The diagnostic hysteroscope was placed into the uterine cavity and the findings appeared excellent as noted above. All instrumentation was removed. One point of bleeding at the tenaculum site was made hemostatic with pressure. Estimated blood lossfor the case was less than 5 mL. there were no complications. All sponge, instrument, and needle counts were correct. The patient tolerated the procedure well and proceeded to the recovery room in stable condition.
[2017-10-09 11:52] VITALS: TEMP 97
[2017-10-09 12:38] VITALS: BP 117/71
[2017-10-09 12:56] VITALS: PULSE 73
[2017-10-09 13:20] VITALS: RESP 18
== END | disposition home or self-care (01) ==
LOC: OR 09:04
PROVIDERS: ATTEND Obstetrics & Gynecology
DX: N92.0 Excessive and frequent menstruation with regular cycle (principal); N93.8 Other specified abnormal uterine and vaginal bleeding; K21.9 Gastro-esophageal reflux disease without esophagitis; Z88.2 Allergy status to sulfonamides
CPT/HCPCS: 81025; 58563; J2250; J1100; J2405; J3010; J1885; J2704

== ENCOUNTER → 2019-05-23 | Outpatient (CLI) | payer OTHER ==
--- NOTE | 2019-05-27 08:52 | MM ---
Reason for exam: screening (asymptomatic). Last mammogram was performed 2 years and 5 months ago. Physical Findings: A clinical breast exam by your physician is recommended on an annual basis and results should be correlated with mammographic findings. MG 3D Screening Mammo W/Cad Bilateral CC and MLO view(s) were taken. Prior study comparison: December 13, 2016, bilateral MG 3d diag mammo w/cad [facility]. July 28, 2015, bilateral MG 3d screening mammo w/cad. There are scattered fibroglandular densities. No significant changes when compared with prior studies. ASSESSMENT: Negative, BI-RAD 1 RECOMMENDATION: Routine screening mammogram of both breasts in 1 year.
== END ==
LOC: RADMAMWWP 09:57
PROVIDERS: ATTEND Obstetrics & Gynecology
DX: Z12.31 Encounter for screening mammogram for malignant neoplasm of breast (principal)
CPT/HCPCS: 77063; 77067

== ENCOUNTER → 2024-01-18 | Outpatient (CLI) | payer OTHER ==
--- NOTE | 2024-01-22 08:37 | MM ---
Reason for Exam: Screening (asymptomatic). Last mammogram was performed 1 year(s) and 5 month(s) ago. Patient History: Menarche at age 13. First Full-Term at age 28. Risk Values: Nancie 5 year model risk: 1.0%. NCI Lifetime model risk: 10.2%. Prior Study Comparison: 12/13/2016 Bilateral Diagnostic Mammogram, [facility]. 05/23/2019 Bilateral Screening Mammogram, [facility]. 08/11/2022 Bilateral MG 3D screening mammo w/cad, [facility]. Tissue Density: There are scattered areas of fibroglandular density. Findings: Analyzed By CAD. There is no suspicious group of microcalcifications or new suspicious mass in either breast. Chronic nodularity right breast stable. Benign calcification. Overall Assessment: Benign, BI-RAD 2 Management: Screening Mammogram of both breasts in 1 year. . Patient should continue monthly self-breast exams. A clinical breast exam by your physician is recommended on an annual basis. This exam should not preclude additional follow-up of suspicious palpable abnormalities. Note on Nancie scores and lifetime risk: 1. A Nancie score greater than 3% is considered moderate risk. If this is the case, consider specialist referral to assess eligibility for a risk reducing agent. 2. If overall lifetime risk for the development of breast cancer is 20% or higher, the patient may qualify for future screening with alternating mammogram and breast MRI. Electronically signed and approved by: Navi Tong M.D. [facility]iolog[facility]
== END | disposition home or self-care (01) ==
LOC: RADMAMWWP 14:43
PROVIDERS: ATTEND Obstetrics & Gynecology
DX: Z12.31 Encounter for screening mammogram for malignant neoplasm of breast (principal); R92.323 Mammographic fibroglandular density, bilateral breasts
CPT/HCPCS: 77063; 77067